=== PATIENT | female | born 1940 | race Caucasian/White ===

== ENCOUNTER 2016-11-10 11:52 | Emergency (ER) | payer OTHER ==
[~2016-11-10] VITALS: Ht 157.5 cm; Wt 63.5 kg
[~2016-11-10 11:52] MED LIST: ACETAMINOPHEN325 M1 PO; CELEXA 20 MG TA20 MG PO; COZAAR 25 MG TA25 M1 PO; CRESTOR40 MG; CYCLOBENZAPRINE5 MG PO; ENOXAPARIN40 MG/0.1 SUBQ; FENTANYL PA25 MCG/HR TRANSDERM; FLEXERIL PO; KLOR-CON 1010 MEQ PO; KLOR-CON20 ME1; LEVOTHYROXIN0.025 MG PO; LEVOTHYROXINE 0.1 MG PO; LEVOTHYROXINE0.2 M1 PO; LOSARTAN-HCTZ1 EAC3 PO; MIRTAZAPINE15 M2 PO; MOBIC7.5 M1 PO; NORVASC2.5 MG; PRILOSEC 20 MG20 MG PO; PRILOSEC20 MG; PROTONIX40 M1 PO; SINEMET 10-1001 EAC1 PO; SINEMET 25-1001 EAC1 PO; XANAX 0.25 MG0.25 MG PO
[2016-11-10] MEDS ORDERED: TRAZODONE HCL50 MG PO (12:10)
[2016-12-19] MEDS ORDERED: AZITHROMYCIN 2250 MG PO (12:26)
[2016-12-19] MEDS ORDERED: KEFLEX500 MG PO (12:26)
[2016-12-24] MEDS ORDERED: PREDNISONE 10 M10 MG PO (14:24)
== END 2016-11-10 13:56 | disposition home or self-care (01) ==
LOC: ER 11:52
DX: S00.83XA Contusion of other part of head, initial encounter (principal); S40.012A Contusion of left shoulder, initial encounter; S60.221A Contusion of right hand, initial encounter; W19.XXXA Unspecified fall, initial encounter; Y93.89 Activity, other specified; Y92.89 Other specified places as the place of occurrence of the external cause; Y99.8 Other external cause status; F32.9 Major depressive disorder, single episode, unspecified; I10 Essential (primary) hypertension; K21.9 Gastro-esophageal reflux disease without esophagitis; Z98.890 Other specified postprocedural states; Z90.710 Acquired absence of both cervix and uterus; E78.00 Pure hypercholesterolemia, unspecified; E03.9 Hypothyroidism, unspecified; G20 Parkinson's disease

== ENCOUNTER 2017-06-10 16:27 | Emergency (ER) | payer OTHER ==
[~2017-06-10] VITALS: Ht 167.6 cm; Wt 55.3 kg
--- NOTE | ~2017-06-10 | EKG ---
[address] [place] [address] ELECTROCARDIOGRAM REPORT Name: MARY MASON Room #: DEP Dory#: [id number] Admission: 06/10/17 Attend Phys: Discharge: 06/10/17 Date of : 36 Report #: [id number] THIS REPORT FOR: //name// [facility] ED Test Date: 2017-06-10 Test Time: 17:06:04 Pat Name: MARY MASON Department: Room: Gender: F [employer]: Leighton JULIO : 1940 Requested By: Anu Pardo Order Number: [id number] MD: Mauricio Carranza Measurements Intervals [place] Rate: 107 P: 29 HI: 150 QRS: -35 QRSD: 97 T: 59 QT: 336 QTc: 449 Interpretive Statements Sinus tachycardia Inferior infarct, old Anterior infarct, old Compared to ECG 12/21/2016 16:49:49 Inferior Q waves are more prominent Electronically Signed On 06-11-2017 7:55:52 CDT by Mauricio Carranza [email or web address] <ELECTRONICALLY SIGNED> By: Mauricio Carranza MD, [facility] 06/11/17 0755 D: [id number] Mauricio Carranza MD, FACC /EPI
[~2017-06-10 16:27] MED LIST changes: +AZITHROMYCIN 2250 MG PO; +KEFLEX500 MG PO; +PREDNISONE 10 M10 MG PO; +TRAZODONE HCL50 MG PO
[2017-06-10 17:33] LABS: ABSOLUTE NEUTROPHILS 5.4 thou/uL (1.4-8.2); BASOPHILS 0.1 % (0.0-2.0); EOSINOPHILS 0.8 % (0.0-3.0); HEMATOCRIT 41.5 % (37.0-47.0); HEMOGLOBIN 13.8 gm/dL (12.0-15.0); LYMPHOCYTES 17.2 % (24.0-44.0); MCH 28.3 pg (26.0-34.0); MCHC 33.4 g/dL (28.0-37.0); MONOCYTES 6.3 % (1.0-8.0); PLATELET COUNT 166 thou/uL (150-400); POLYS 75.6 % (36.0-66.0); RBC 4.89 mil/uL (4.20-5.00); RDW 14.2 % (10.5-14.5); WBC 7.1 thou/uL (4.0-11.0)
[2017-06-10 17:34] LABS: MANUAL DIFF NO
[2017-06-10 17:39] LABS: ANION GAP 8 mmol/L (7-16); BUN 23 mg/dL (7-18); CALCIUM 9.4 mg/dL (8.5-10.1); CHLORIDE 106 mmol/L (98-107); CO2 28 mmol/L (21-32); CREATININE 0.8 mg/dL (0.6-1.0); GLUCOSE 137 mg/dL (74-106); POTASSIUM 3.9 mmol/L (3.5-5.1); SODIUM 142 mmol/L (136-145)
[2017-06-10 17:49] LABS: ALKALINE PHOSPHATASE 61 U/L (46-116); SGOT 25 U/L (15-37); SGPT 14 U/L (30-65); TOTAL BILIRUBIN 0.5 mg/dL (<0.1-1.0); TOTAL PROTEIN 7.1 g/dL (6.4-8.2); TROPONIN-I < 0.04 ng/mL (<0.04-0.07)
[2017-06-10] MEDS ORDERED: VALIUM5 MG PO (18:10)
== END 2017-06-10 18:36 | disposition home or self-care (01) ==
LOC: ER 16:27
PROVIDERS: Nurse Practitioner Family
DX: S46.911A Strain of unspecified muscle, fascia and tendon at shoulder and upper arm level, right arm, initial encounter (principal); M62.838 Other muscle spasm; I10 Essential (primary) hypertension; F32.9 Major depressive disorder, single episode, unspecified; K21.9 Gastro-esophageal reflux disease without esophagitis; E78.00 Pure hypercholesterolemia, unspecified; E03.9 Hypothyroidism, unspecified; Z90.13 Acquired absence of bilateral breasts and nipples; Z90.710 Acquired absence of both cervix and uterus; X58.XXXA Exposure to other specified factors, initial encounter; Y93.89 Activity, other specified; Y92.89 Other specified places as the place of occurrence of the external cause; Y99.8 Other external cause status